=== PATIENT | female | born 1990 | race Caucasian/White ===

== ENCOUNTER 2023-09-21 15:42 | Emergency (ER) | payer OTHER ==
[2023-09-21 15:53] VITALS: RESP 20; BMI 27.0
[2023-09-21] MEDS ORDERED: ACETAMINOPHEN INJECTION 100 ML IVPB ONE (17:21)
[2023-09-21] MEDS: SODIUM CHLORIDE 0.9% 500 ML INFUS.BAG IV ONE (17:33)
[2023-09-21] MEDS: ACETAMINOPHEN 1000 MG/100 ML BAG IVPB ONE (17:34)
[2023-09-21 17:40] LABS: BASO % 0.2 % (0-2.0); EOS % 0.2 % (0-4.5); HEMATOCRIT 38.2 % (32.4-45.2); HEMOGLOBIN 12.9 GM/dL (10.7-15.3); LYMPH % 6.4 % (8-40); MCH 30.4 pg (25.7-33.7); MCHC 33.9 g/dl (32.0-36.0); MEAN CELL VOLUME 89.6 fl (80-96); MEAN PLT VOLUME 9.4 fl (7.5-11.1); NEUT % 84.2 % (42.8-82.8); PLATELET COUNT 240 10^3/uL (134-434); RBC 4.26 M/mm3 (3.60-5.2); RDW 13.2 % (11.6-15.6)
[2023-09-21] MEDS ORDERED: ONDANSETRON 4 MG/2 ML VIAL ONE (17:57)
[2023-09-21] MEDS: ONDANSETRON 4 MG/2 ML VIAL IVPUSH ONE (17:58)
[2023-09-21 17:59] LABS: POTASSIUM 4.2 mmol/L (3.5-5.1)
[2023-09-21 18:00] LABS: CALCIUM 9.9 mg/dL (8.5-10.1)
[2023-09-21 18:01] LABS: ALBUMIN 3.8 g/dl (3.4-5.0); BLOOD UREA NITROGEN 6.8 mg/dL (7-18)
[2023-09-21 18:04] LABS: CREATININE 0.5 mg/dL (0.55-1.3)
[2023-09-21 18:05] LABS: TOT PROT 8.3 g/dl (6.4-8.2)
[2023-09-21 18:09] LABS: BILIRUBIN,TOTAL 1.3 mg/dL (0.2-1)
[2023-09-21 18:59] LABS: EPI CELLS 11 /uL (0-25.1); HYALINE CASTS 1 /uL (0-3.1); URINE APPEARANCE CLOUDY; URINE BACTERIA 43 /uL (0-1359); URINE BILIRUBIN NEGATIVE (NEGATIVE); URINE COLOR DK YELLOW; URINE GLUCOSE (UA) NEGATIVE (NEGATIVE); URINE KETONE 4+ (NEGATIVE); URINE LEUK ESTERASE NEGATIVE (NEGATIVE); URINE NITRITE NEGATIVE (NEGATIVE); URINE PROTEIN 1+ (NEGATIVE); URINE RBC 42 /uL (0-23.9); URINE WBC 15 /uL (0-25.8)
[2023-09-21] MEDS: DEXTROSE 5%-0.45% SALINE 1,000 ML IV SCH (20:20)
[2023-09-21 20:56] VITALS: BP 113/59; PULSE 76; TEMP 98.2
[2023-09-21] MEDS ORDERED: CEPHALEXIN MONOHYDRATE 500 MG CAPSULE (UD) ONE (22:50)
[2023-09-21] MEDS: CEPHALEXIN MONOHYDRATE 500 MG CAPSULE (UD) PO ONE (22:54)
== END 2023-09-21 23:09 | disposition home or self-care (01) ==
LOC: JER 15:42
PROC: 3E033NZ Introduction of Analgesics, Hypnotics, Sedatives into Peripheral Vein, Percutaneous Approach (ICD-10-PCS; principal; 2023-09-21)
PROC: 3E033GC Introduction of Other Therapeutic Substance into Peripheral Vein, Percutaneous Approach (ICD-10-PCS; 2023-09-21)
DX: O21.9 Vomiting of pregnancy, unspecified (principal); O26.891 Other specified pregnancy related conditions, first trimester; R19.7 Diarrhea, unspecified; O23.41 Unspecified infection of urinary tract in pregnancy, first trimester; O99.611 Diseases of the digestive system complicating pregnancy, first trimester; A08.4 Viral intestinal infection, unspecified; Z3A.10 10 weeks gestation of pregnancy; Z20.822 Contact with and (suspected) exposure to COVID-19
CPT/HCPCS: 0241U-QW; 36415; 76817-TC; 80053; 81003; 84703; 85025; 87086; 99284-25; J0131

== ENCOUNTER 2024-03-29 05:40 | Inpatient (IN) | payer OTHER ==
[2024-03-29] MEDS: ELECTROLYTE-148 SOLN 500 ML IV ONE (06:20)
[2024-03-29 06:33] VITALS: BMI 35.6
[2024-03-29] MEDS: CITRIC ACID/SODIUM CITRATE 30 ML UNIT-DOSE CUP PO ONE (07:30)
[2024-03-29] MEDS ORDERED: LIGASURE IMPACT TP ONE (07:34)
[2024-03-29] MEDS ORDERED: FENTANYL CITRATE/PF 50 MCG/ML VIAL ONE (07:58)
[2024-03-29] MEDS ORDERED: morphine SULFATE (PF) 1 MG/2 ML SYRINGE ONE (07:58)
[2024-03-29] MEDS ORDERED: ceFAZolin SODIUM 1 GM VIAL ONE (08:58)
[2024-03-29] MEDS ORDERED: KETOROLAC TROMETHAMINE 30 MG/1 ML VIAL ONE (08:58)
[2024-03-29] MEDS ORDERED: OXYTOCIN 10 UNITS/ML VIAL ONE (08:58)
[2024-03-29] MEDS ORDERED: ONDANSETRON 4 MG/2 ML VIAL ONE (08:58)
[2024-03-29] MEDS ORDERED: PHENYLEPHRINE HCL 10 MG/1 ML SINGLE DOSE VIAL ONE (08:58)
[2024-03-29] MEDS ORDERED: ONDANSETRON 4 MG/2 ML VIAL IVPUSH PRN (09:04)
[2024-03-29] MEDS ORDERED: OXYTOCIN 20 UNITS in 0.9% NS 20 UNIT/1,000 ML INFUS.BAG IV ONE (09:29)
[2024-03-29] MEDS: OXYTOCIN 20 UNITS in 0.9% NS 20 UNIT/1,000 ML INFUS.BAG IV SCH (09:30)
[2024-03-29] MEDS: morphine SULFATE/PF 1 MG/2 ML (2cc Syringe - QUVA) IT ONE (11:27)
[2024-03-29] MEDS: ELECTROLYTE-148 SOLN 1,000 ML IV SCH ×2 (11:27→11:28)
[2024-03-29] MEDS: ACETAMINOPHEN 1000 MG/100 ML BAG IVPB ONE (11:27)
[2024-03-29] MEDS: SIMETHICONE 80 MG TAB.CHEW (FP) PO PRN (19:03)
[2024-03-29] MEDS: ACETAMINOPHEN 325 MG TABLET (FP) PO PRN (19:03)
[2024-03-30] MEDS: IBUPROFEN 800 MG/8 ML IJ IVPB PRN (01:43)
[2024-03-30] MEDS ORDERED: BISACODYL 10 MG SUPP.RECT RC PRN (08:01)
[2024-03-30 08:14] LABS: BASO % 0.4 % (0-2.0); EOS % 2.3 % (0-4.5); HEMATOCRIT 29.8 % (32.4-45.2); HEMOGLOBIN 9.6 GM/dL (10.7-15.3); MCH 27.6 pg (25.7-33.7); MCHC 32.2 g/dl (32.0-36.0); MEAN CELL VOLUME 85.8 fl (80-96); MEAN PLT VOLUME 11.3 fl (7.5-11.1); MONO % 6.5 % (3.8-10.2); NEUT % 79.8 % (42.8-82.8); PLATELET COUNT 160 10^3/uL (134-434); RBC 3.47 M/mm3 (3.60-5.2); RDW 14.6 % (11.6-15.6); WHITE BLOOD COUNT 10.4 K/mm3 (4.0-10.0)
[2024-03-30 13:02] LABS: HIV INTERPRETATION NEGATIVE (NEGATIVE)
[2024-03-30] MEDS: oxyCODONE HCL 5 MG TABLET PO PRN (17:20)
[2024-03-31] MEDS: IBUPROFEN 600 MG TABLET (FP) PO PRN (09:05)
[2024-03-31 22:57] VITALS: RESP 18
[2024-04-01 08:13] VITALS: BP 125/78; PULSE 105; TEMP 98.4
[2024-04-01 08:38] LABS: BASO % 0.5 % (0-2.0); EOS % 5.9 % (0-4.5); HEMOGLOBIN 10.1 GM/dL (10.7-15.3); LYMPH % 17.5 % (8-40); MCH 27.9 pg (25.7-33.7); MCHC 32.6 g/dl (32.0-36.0); MEAN CELL VOLUME 85.6 fl (80-96); MEAN PLT VOLUME 10.6 fl (7.5-11.1); MONO % 6.9 % (3.8-10.2); NEUT % 69.2 % (42.8-82.8); PLATELET COUNT 215 10^3/uL (134-434); RBC 3.62 M/mm3 (3.60-5.2); RDW 14.9 % (11.6-15.6); WHITE BLOOD COUNT 7.3 K/mm3 (4.0-10.0)
== END 2024-04-01 13:48 | disposition home or self-care (01) | DRG 540 ==
LOC: JLDR 05:40 → J3W 11:12
PROVIDERS: ADMIT Student in an Organized Health Care Education/Training Program; ATTEND Student in an Organized Health Care Education/Training Program
PROC: 10D00Z1 Extraction of Products of Conception, Low, Open Approach (ICD-10-PCS; principal; 2024-03-29)
PROC: 0UB70ZZ Excision of Bilateral Fallopian Tubes, Open Approach (ICD-10-PCS; 2024-03-29)
DX: O34.211 Maternal care for low transverse scar from previous cesarean delivery (principal); N85.8 Other specified noninflammatory disorders of uterus; Z30.2 Encounter for sterilization; Z3A.39 39 weeks gestation of pregnancy; Z37.0 Single live birth
CPT/HCPCS: 36415; 59409; 80053; 81003; 85025; 85610; 86780; 86850; 86900; 86901; 87389; 88305-TC; 88307-TC; 94010